=== PATIENT | male | born 1940 | race Caucasian/White ===

== ENCOUNTER 2022-12-05 10:36 | Outpatient (CLI) | payer OTHER, MEDICARE ==
[~2022-12-05 10:36] MED LIST: Magnevist 469MG/ML 20 ML VIAL ONE
== END 2022-12-05 10:37 | disposition home or self-care (01) ==
LOC: CSHMRI 10:36
PROVIDERS: ATTEND Specialist
DX: S06.0XAA Concussion with loss of consciousness status unknown, initial encounter (principal); V89.2XXA Person injured in unspecified motor-vehicle accident, traffic, initial encounter; S06.5XAA Traumatic subdural hemorrhage with loss of consciousness status unknown, initial encounter
CPT/HCPCS: 70553

== ENCOUNTER 2023-02-18 14:04 | Emergency (ER) | payer MEDICARE ==
[2023-02-18 15:36] LABS: #Eosinphils 0.1 10x3/uL (0.0-0.5); #Monocytes 0.7 10x3/uL (0.0-1.1); #Neutrophils 3.1 10x3/uL (1.5-8.4); %Basophils 0.5 % (0.0-2.0); %Eosinophils 1.2 % (0.0-6.0); %Lymphocytes 33.8 % (18.0-47.0); %Monocytes 11.1 % (0.0-10.0); %Neutrophils 53.2 % (40.0-75.0); Hemoglobin 16.7 g/dL (13.5-17.5); Mean Corpuscular HGB CONC 33.7 g/dL (32.0-36.0); Mean Corpuscular Hemoglobin 30.3 pg (27.0-33.0); Mean Corpuscular Volume 89.8 fl (81.2-95.1); Mean Platelet Volume 10.1 fl (7.4-10.4); Platelet Count 224 10x3/uL (150-450); RBC Distribution Width 14.2 % (11.5-14.5); Red Blood Cell (RBC) Count 5.51 10x6/uL (4.32-5.72); White Blood Cell (WBC) Count 5.8 10x3/uL (3.5-10.5)
[2023-02-18 15:50] LABS: ALT (SGPT) 36 U/L (8-55); AST (SGOT) 43 U/L (5-34); Albumin 4.4 g/dL (3.4-4.8); Alkaline Phosphatase 130 U/L (40-110); Anion Gap 16 mmol/L (10-20); BUN (Urea Nitrogen) 11 mg/dL (8.4-25.7); Bilirubin, Total 0.9 mg/dL (0.2-1.2); Calc. Creatinine Clearance 0 mL/min (70-130); Calcium 9.9 mg/dL (7.8-10.44); Carbon Dioxide 24 mmol/L (23-31); Chloride 109 mmol/L (98-107); Estimated GFR 73; Globulin 2.5 g/dL (2.4-3.5); Glucose 109 mg/dL (83-110); Potassium 4.1 mmol/L (3.5-5.1); Protein, Total 6.9 g/dL (5.8-8.1); Sodium 145 mmol/L (136-145)
[2023-02-18] MEDS ORDERED: Metoprolol Tartrate 50 MG TAB ONE (16:59)
== END 2023-02-18 17:40 | disposition home or self-care (01) ==
LOC: CSHERS 14:04
DX: I10 Essential (primary) hypertension (principal); Z79.899 Other long term (current) drug therapy
CPT/HCPCS: 80053; 84484; 85025; 93005

== ENCOUNTER 2023-05-31 10:07 | Outpatient (CLI) | payer MEDICARE | END 2023-05-31 10:08 | disposition home or self-care (01) | LOC: CSHCT 10:07 | PROVIDERS: ATTEND Psychiatry & Neurology Neurology | DX: G96.08 Other cranial cerebrospinal fluid leak (principal) | CPT/HCPCS: 70450 ==